=== PATIENT | male | born 2000 | race Caucasian/White ===

== ENCOUNTER 2018-07-16 07:30 | Day surgery (SDC) | payer OTHER ==
[2018-07-13 14:23] LABS: Absolute Lymphocytes (CBC) 1.3 K/uL (0.7-4.9); Absolute Monocytes 0.8 K/uL (0.1-1.3); Absolute Neutrophil 4.6 K/uL (1.8-8.0); Basophils % 0.5 % (0-1.3); Eosinophils % 2.9 % (0-4.4); Hematocrit 40.2 % (39.6-49.0); Lymphocytes % 18.8 % (15.3-44.8); MPV 7.4 fL (7.6-11.3); RBC Red Blood Cell Count 4.67 M/uL (4.33-5.43)
[2018-07-13 14:24] LABS: Protime INR 1.01
[2018-07-13 14:25] LABS: BUN Blood Urea Nitrogen 17 mg/dL (7-18); Bicarbonate 27 mmol/L (21-32); Glucose Level 81 mg/dL (74-106); Potassium 3.9 mmol/L (3.5-5.1); Sodium Level 141 mmol/L (136-145)
--- OUTSIDE RECORDS SUMMARY | 2018-07-16 07:36 | XMS REPORT ---
:2000 [facility] [address] [place] [address] Care Team Providers Name Role Phone Unavailable Unavailable Unavailable Payers Payer Name Policy Type Policy Number Effective Date Expiration Date Problems This patient has no known problems. Allergies, Adverse Reactions, Alerts Allergy Allergy Status Severity Reaction(s) Onset Inactive Treating Comments Name Type Date Date Clinician No Known DA Active U 2018-07 Allergies 00:00:0 0 Medications This patient has no known medications. Results Test Description Test Time Test Comments Text Results Atomic Results Result Comments - XR 2018-07-06 FAX: Thomas Tyler Felch: B St: ANKLE 13:57:00 REG 3 + V Name: JANN CARVAJAL [facility] : RT 2000 Age/S: 17/M Stefani Johnsonncer Subha Unit #: [id number] Loc: [place] [address] Phys : Thomas Tyler MD Acct : [id number] Dis Date: Status: REG ER PHONE #: [phone] Exam Date: 07/06/2018 1245 FAX #: [phone] Reason: ANKLE PAIN EXAMS: CPT CODE: [id number] XR ANKLE 3 + V RT [id number] EXAM: Ankle, 3 views and right foot, 3 views; INFORMATION: Trauma; pain after twisting ankle; FINDINGS: Normal shape and structure of the imaged bones; no evidence of fracture or dislocation; no soft tissue abnormalities. IMPRESSION: No evidence of acute osseous trauma or other pathological changes. No radiopaque foreign body. at 8413 Reported and signed by: Heber Frias M.D. CC: Thomas Tyler MD Technologist: Arthur Bone RT(R) Trnscrd Date/Time/By: 07/06/2018 (0183) : By: ElviraGRW Orig Print D/T: S: 07/06/2018 (3613) PAGE 1 Signed Report - XR 2018-07-06 FAX: Thomas Tyler Felch: B St: FOOT 3 13:57:00 REG + V RT Name: JANN CARVAJAL [facility] : 2000 Age/S: 17/M [address] [facility] Unit # : [id number] Loc: [place] [address] Phys : Thomas Tyler MD Acct : [id number] Dis Date: Status: REG ER PHONE #: [phone] Exam Date: 07/06/2018 1245 FAX #: [phone] Reason: FOOT PAIN EXAMS: CPT CODE: [id number] XR FOOT 3 + V RT [id number] EXAM: Ankle, 3 views and right foot, 3 views; INFORMATION: Trauma; pain after twisting ankle; FINDINGS: Normal shape and structure of the imaged bones; no evidence of fracture or dislocation; no soft tissue abnormalities. IMPRESSION: No evidence of acute osseous trauma or other pathological changes. No radiopaque foreign body. at 1357 Reported and signed by: Heber Frias M.D. CC: Thomas Tyler MD Technologist: Arthur Bone RT(R) Trnscrd Date/Time/By: 07/06/2018 (0054) : By: ElviraGRW Orig Print D/T: S: 07/06/2018 (6252) PAGE 1 Signed Report - XR 2018-07-06 FAX: Thomas Tyler Felch: St: TIBIA/ 13:53:00 REG FIBULA Name: JANN CARVAJAL [facility] : 2 V RT 2000 Age/S: 17/M [address] [facility] Unit #: [id number] Loc: [place] [address] Phys : Thomas Tyler MD Acct : [id number] Dis Date: Status: REG ER PHONE #: [phone] Exam Date: 07/06/2018 1245 FAX #: [phone] Reason: LEG PAIN EXAMS: CPT CODE: [id number] XR TIBIA/FIBULA 2 [place] [id number] EXAM: Right tibia and fibula, 4 views; INFORMATION: Twisted ankle, leg pain; FINDINGS: There is a noncomminuted, nondisplaced fracture through the midportion of the right fibula. The right tibia is intact. No radiopaque foreign bodies. Unremarkable knee joint. IMPRESSION: Nondisplaced fracture of the right fibula. at 1353 Reported and signed by: Heber Frias M.D. CC: Thomas Tyler MD Technologist: Arthur DOZIER) Trnscrd Date/Time/By: 07/06/2018 (5231) : By: Young Orig Print D/T : S: 07/06/2018 (2830) PAGE 1 Signed Report
[2018-07-16] MEDS ORDERED: LIDOCAINE 2% MPF 5 ML VIAL ONE (08:04)
[2018-07-16] MEDS ORDERED: PROPOFOL 200 MG/20 ML VIAL IV ONE (08:04)
[2018-07-16] MEDS ORDERED: Ringers Lactate 1,000 ML IV ONE ×2 (08:05→10:11)
[2018-07-16] MEDS ORDERED: FENTANYL CITR 250 MCG/5 ML ONE (08:05)
[2018-07-16] MEDS ORDERED: CEFAZOLIN/SWI 1gm 1 GM/10 ML SYR ONE (08:07)
[2018-07-16] MEDS ORDERED: ONDANSETRON 4 MG/2 ML VIAL ONE (08:09)
[2018-07-16] MEDS ORDERED: MIDAZOLAM HCL 2 MG/2 ML INJ ONE ×2 (08:12→10:03)
[2018-07-16] MEDS ORDERED: BUPIVACAINE 0.5% PF 10 ML VIAL ONE (08:57)
[2018-07-16] MEDS ORDERED: FENTANYL CITR 100 MCG/2 ML ONE (10:03)
[2018-07-16] MEDS: MEPERIDINE HCL 25 MG/0.5 ML ONE ×2 (10:22→10:26)
[2018-07-16] MEDS: HYDROMORPHONE HCL 2 MG/ML inj ONE ×4 (10:37→11:05)
--- NOTE | 2018-07-16 10:58 | P.BOP ---
Preoperative diagnosis: right ankle syndesmosis injury, right fibula shaft fracture Postoperative diagnosis: same Primary procedure: ORIF right ankle syndesmosis injury Secondary procedure: closed treatment right fibula shaft fracture Rn Float: NONE,NONE Estimated blood loss: 5 cc Specimen: none Findings: see dictation Anesthesia: General Complications: None Implants: 2 hole plate with 2 Arthrex tightope Fluids & blood products: per anesthesia; TT: 72 mins @ 250 mmHg Transferred to: Recovery Room Condition: Good
[2018-07-16] MEDS: MIDAZOLAM HCL 2 MG/2 ML INJ ONE ×2 (11:11→11:28)
--- NOTE | 2018-07-16 11:27 | RAD REPORT ---
EXAM DESCRIPTION: RAD - Ankle Right 3 View - 07/16/2018 11:18 am CLINICAL HISTORY: s/p ORIF right syndesmosis COMPARISON: Ankle Left 3 View dated 06/21/2017 FINDINGS: Postsurgical changes are present involving the right ankle with hardware in place. No unex pected finding. Plaster splint limits bone detail.
[2018-07-16] MEDS ORDERED: HYDROCODONE/APAP 7.5/325 MG TAB ONE ×2 (11:51→13:04)
--- NOTE | 2018-07-16 12:26 | RAD REPORT ---
EXAM DESCRIPTION: RAD - Ankle Right 3 View - 07/16/2018 12:16 pm CLINICAL HISTORY: ORIF IN OR 3 COMPARISON: Ankle Left 3 View dated 06/21/2017 FINDINGS: Fluoroscopic imaging from ORIF procedure right ankle. Details of the procedure not availab le. Fluoroscopy time 1.2 minutes.
--- NOTE | 2018-07-17 03:59 | OP ---
Date of Procedure: 07/16/2018 Surgeon: Brad Goins MD Preoperative Diagnoses: 1.Right ankle syndesmosis tear. 2.Right fibular shaft fracture. Postoperative Diagnosis: 1.Right ankle syndesmosis tear. 2.Right fibular shaft fracture. Procedure Performed: 1.Open reduction and internal fixation of right syndesmosis injury. 2.Closed treatment, right fibular shaft fracture. Anesthesia: General LMA. Fluids: Per Anesthesia record. Estimated Blood Loss: 5 cc. Complications: None. Implants: Two Arthrex syndesmosis TightRope with a 2-hole plate. Tourniquet Time: 72 minutes at 250 mmHg. Indication For Procedure: Danis is a 17-year-old male, who presented to my clinic after sustaining an injury to his right ankle. X-rays and physical exam findings were consistent with a right fibular shaft fracture and syndesmosis injury with a widening of the medial clear space as well as tibiofibu lar space. I discussed with the patient at length risks and benefits associated with operative and n onoperative treatment and he expressed understanding and elected to proceed with operative treatment. Description Of Procedure: After informed consent was obtained, the patient was identified in the pre operative holding area. The right lower extremity was marked. The patient was then taken back to e operating room, transferred to the operative table in supine fashion, placed under general LMA anes thesia. The right lower extremity was prepped and draped in usual sterile fashion. A time-out was i nitiated. The correct patient and procedure were confirmed and identified. The patient did receive preoperative prophylactic antibiotics. The right lower extremity was exsanguinated using an Esmarch and the tourniquet was inflated to 250 mmHg. Approximately, a 4 cm incision was made over the distal fibula just proximal to the joint space. Dissection was then taken down to the distal fibula using Metzenbaum and a soft tissue elevator. Once the distal fibula was encountered, a 2-hole plate was th en placed along the lateral aspect of the distal fibula and held into position using a guidewire. A 2 K-wires were then placed parallel to the distal tibiotalar joint line under fluoroscopic guidance. They were passed across 4 cortices. Once proper positioning was confirmed using fluoroscopy, the ca nnulated drill bit was then placed over the K-wires and the 4 cortices were drilled. Two TightRope w ere then placed. Small stab incisions were made medially. The needles were brought out medially. T he buttons were then clipped and held close against the distal tibia with no underlying soft tissue i nterposition. The buttons were then tightened into place. A hinton reduction clamp was used througho ut the entirety of the case, holding the distal tibiofibular joint reduced. Buttons were then locked into position and there was good overall reduction of the syndesmosis. The remaining sutures were t hen cut. The wounds were then irrigated thoroughly with normal saline. Subcutaneous tissue was appr oximated using a 2-0 Vicryl. The skin was approximated using 3-0 nylon. Sterile dressings were appl ied. The patient was placed in a posterior stirrup splint. He was awakened and transferred to the P ACU in stable condition. Postoperative Plan: He will be nonweightbearing of his right lower extremity. He will follow up in clinic in 2 weeks for wound check. Suture removal. We will likely transition him into a CAM boot, s o we can tell out some gentle [id number] exercises. SEKOU/MODL Voice ID: [id number] Report ID: [id number]
== END 2018-07-16 13:50 | disposition home or self-care (01) ==
LOC: OR 07:30
PROVIDERS: ATTEND Orthopaedic Surgery Sports Medicine
PROC: 0QSG04Z Reposition Right Tibia with Internal Fixation Device, Open Approach (ICD-10-PCS; 2018-07-16)
PROC: 0QSJ04Z Reposition Right Fibula with Internal Fixation Device, Open Approach (ICD-10-PCS; principal; 2018-07-16 08:30)
DX: S93.431A Sprain of tibiofibular ligament of right ankle, initial encounter (principal); S82.491A Other fracture of shaft of right fibula, initial encounter for closed fracture; W03.XXXA Other fall on same level due to collision with another person, initial encounter; Y93.64 Activity, baseball
CPT/HCPCS: 36415; 80048; 85025; 85610; 85730; J0690; J1170; J2175; J2250; J2405; J2704; J3010

== ENCOUNTER 2018-07-16 22:02 | Emergency (ER) | payer OTHER ==
--- OUTSIDE RECORDS SUMMARY | 2018-07-16 22:04 | XMS REPORT ---
:2000 [facility] Address [address] [place] [address] Care Team Providers Name Role Phone Unavailable [...] Comments - XR 2018-07-06 FAX: Thomas Tyler [place]: B St: ANKLE 13:57:00 REG 3 + V Name: JANN CARVAJAL [facility] : RT 2000 Age/S: 17/M Stefani Johnsonncer Subha Unit #: [id number] Loc: [place] [address] Phys : Thomas Tyler MD Acct : [id number] Dis Date: Status: REG ER PHONE #: [phone] Exam Date: 07/06/2018 1245 FAX #: [phone] Reason: ANKLE PAIN EXAMS: CPT CODE: [id number] XR ANKLE 3 + V RT [id number] EXAM: Ankle, 3 views and right foot, 3 views; INFORMATION: Trauma; pain after twisting ankle; FINDINGS: Normal shape and structure of the imaged bones; no evidence of fracture or dislocation; no soft tissue abnormalities. IMPRESSION: No evidence of acute osseous trauma or other pathological changes. No radiopaque foreign body. at 0157 Reported and signed by: Heber Frias M.D. CC: Thomas Tyler MD Technologist: Arthur Bone RT(R) Trnscrd Date/Time/By: 07/06/2018 (7128) : By: ElviraGRW Orig Print D/T: S: 07/06/2018 (3112) PAGE 1 Signed Report - XR 2018-07-06 FAX: Thomas Tyler [place]: B St: FOOT 3 13:57:00 REG + V RT Name: JANN CARVAJAL [facility] : 2000 Age/S: 17/M [address] [facility] Unit # : [id number] Loc: [place] [address] Phys : Thomas Tyler MD Acct : [id number] Dis Date: Status: REG ER PHONE #: [phone] Exam Date: 07/06/2018 1245 FAX #: [phone] Reason: FOOT PAIN EXAMS: CPT CODE: [id number] XR FOOT 3 + V RT [id number] EXAM: Ankle, 3 views and right foot, [...] Technologist: Arthur Bone RT(R) Trnscrd Date/Time/By: 07/06/2018 (6222) : By: ElviraGRW Orig Print D/T: S: 07/06/2018 (8765) PAGE 1 Signed Report - XR 2018-07-06 FAX: Thomas Tyler [place]: St: TIBIA/ 13:53:00 REG FIBULA Name: JANN CARVAJAL [facility] : 2 V RT 2000 Age/S: 17/M [address] [facility] Unit #: [id number] Loc: [place] [address] Phys : Thomas Tyler MD Acct : [id number] Dis Date: Status: REG ER PHONE #: [phone] Exam Date: 07/06/2018 1245 FAX #: [phone] Reason: LEG PAIN EXAMS: CPT CODE: [id number] XR TIBIA/FIBULA 2 V RT [address] EXAM: Right tibia and fibula, 4 views; [...] MD Technologist: Arthur DOZIER) Trnscrd Date/Time/By: 07/06/2018 (2015) : By: Young Orig Print D/T : S: 07/06/2018 (8381) PAGE 1 Signed Report
[2018-07-16] MEDS ORDERED: FENTANYL CITR 100 MCG/2 ML ONE (23:27)
[2018-07-17] MEDS ORDERED: LORazepam 2 MG/ML VIAL ONE (00:04)
[2018-07-17] MEDS ORDERED: HYDROMORPHONE HCL 1 MG/ML INJ ONE ×2 (00:38→02:32)
--- NOTE | 2018-07-17 02:49 | ER ---
Nurse's Notes [facility] Name: Danis Garzon Age: 17 yrs Sex: Male : 2000 Arrival Date: 07/16/2018 Time: 22:13 Bed 7 Private MD: Bull Stone W Diagnosis: post-op pain s/p ORIF R ankle Presentation: 07/16 22:13 Presenting complaint: Patient states: Pt complaining of pain to right leg, reports he ea had surgery today. Mother reports it was tendon repair, Dr. Goins is his surgeon. Transition of care: patient was not received from another setting of care. Onset of symptoms was July 16, 2018. Risk Assessment: Do you want to hurt yourself or someone else? Patient reports no desire to harm self or others. Initial Sepsis Screen: Does the patient meet any 2 criteria? No. Patient's initial sepsis screen is negative. Does the patient have a suspected source of infection? No. Patient's initial sepsis screen is negative. Care prior to arrival: Medication(s) given: norco. 22:13 Method Of Arrival: Wheelchair ea 22:13 Acuity: MARICARMEN 3 ea Historical: - Allergies: 22:17 No Known Allergies; ea - Home Meds: 22:17 None [Active]; ea - PMHx: 22:17 None; ea - PSHx: 22:17 None; ea - Immunization history:: Adult Immunizations up to date. - Social history:: Smoking status: Patient/guardian denies using tobacco. - Ebola Screening: : No symptoms or risks identified at this time. - Family history:: not pertinent. - Hospitalizations: : No recent hospitalization is reported. Screenin:35 Abuse screen: Denies threats or abuse. Denies injuries from another. Nutritional ak1 screening: No deficits noted. Tuberculosis screening: No symptoms or risk factors identified. Fall Risk Gait- Impaired (20 pts.). Assessment: 22:33 General: Appears uncomfortable, Behavior is cooperative. Pain: Complains of pain in ak1 right leg. Neuro: No deficits noted. Cardiovascular: No deficits noted. Respiratory: No deficits noted. GI: No signs and/or symptoms were reported involving the gastrointestinal system. : No signs and/or symptoms were reported regarding the genitourinary system. EENT: No signs and/or symptoms were reported regarding the EENT system. Derm: Skin is pink, warm \T\ dry. cap refill less 3 seconds to right toes. pt c/o increased pain to right lower leg s/p sx today by Dr. Goins. pt mother stated she called Dr. Goins office with no success of reaching anyone. Musculoskeletal: No signs and/or symptoms reported regarding the musculoskeletal system. 22:35 Reassessment: pt refused offer to elevate extremity. ak1 07/17 00:00 Reassessment: Pt c/o of pain at this time. notified. new order see JUL. tl2 00:05 Reassessment: Dr. Sweeney removed splint and wrapping from right leg. elevated leg on 2 tl2 pillows and instructed to let leg rest before replacing splint. 00:54 Reassessment: Patient appears in no apparent distress at this time. pt resting, reports tl2 relief with dilaudid. 02:13 Reassessment: Awaiting Dr. Sweeney for splint replacement. tl2 03:26 Reassessment: pt is A\T\O x 4, splint replaced pt states it is more comfortable now, pt bb and parent verbalized understanding of and agrees to plan of care discharge instructions given pt assisted to exit via wheelchair accompanied by family. Vital Signs: 07/16 22:16 BP 136 / 94; Pulse 82; Resp 18; Temp 97.8; Pulse Ox 95% on R/A; Weight 74.84 kg; Height ea 6 ft. (182.88 cm); Pain 10/10; 22:35 BP 144 / 79; Pulse 79; Resp 16; Pulse Ox 100% on R/A; Pain 9/10; ak1 07/17 00:02 BP 154 / 98; Pulse 94; Resp 20; Pulse Ox 100% on R/A; tl2 00:53 BP 138 / 87; Pulse 73; Resp 18; Pulse Ox 96% on R/A; tl2 01:21 BP 148 / 84; Pulse 71; Resp 18; Pulse Ox 98% on R/A; tl2 03:27 BP 141 / 90; Pulse 83; Resp 16 S; Temp 98.5(O); Pulse Ox 98% on R/A; Pain 7/10; bb 07/16 22:16 Body Mass Index 22.38 (74.84 kg, 182.88 cm) ea ED Course: 07/16 22:13 Patient arrived in ED. am2 22:13 Bull Stone MD is Private Physician. am2 22:16 Triage completed. ea 22:17 Arm band placed on right wrist. Patient placed in waiting room. ea 22:33 Xenia Gregorio, RN is Primary Nurse. ak1 22:36 Patient has correct armband on for positive identification. Bed in low position. Call ak1 light in reach. Side rails up X2. Adult w/ patient. Pulse ox on. NIBP on. 23:00 Tor Sweeney MD is Attending Physician. wa 23:07 Inserted saline lock: 22 gauge in right antecubital area, using aseptic technique. tl2 07/17 02:35 Tib Fib Right XRAY In Process Unspecified. EDMS 02:47 Brad Goins MD is Referral Physician. wa 03:27 No provider procedures requiring assistance completed. IV discontinued, intact, bb bleeding controlled, No redness/swelling at site. Pressure dressing applied. Administered Medications: 07/16 23:22 Drug: fentaNYL (PF) 75 mcg Route: IVP; Site: right antecubital; tl2 23:30 Follow up: Response: No adverse reaction; Pain is decreased tl2 23:59 Drug: Ativan 0.5 mg Route: IVP; Site: right antecubital; tl2 07/17 00:55 Follow up: Response: No adverse reaction; Marked relief of symptoms tl2 00:31 Drug: Dilaudid 1 mg Route: IVP; Site: right antecubital; tl2 00:55 Follow up: Response: No adverse reaction; Pain is decreased tl2 02:24 Drug: Dilaudid 1 mg Route: IVP; Site: right antecubital; tl2 03:25 Follow up: Response: Pain is decreased bb 03:19 Drug: TORadol 30 mg Route: IVP; Site: right antecubital; bb 03:25 Follow up: Response: Pain is decreased bb 03:20 Drug: Zofran 4 mg Route: IVP; Site: right antecubital; bb 03:26 Follow up: Response: No adverse reaction bb Outcome: 02:48 Discharge ordered by . wa 03:28 Discharged to home via wheelchair, with family. bb 03:28 Condition: stable 03:28 Discharge instructions given to patient, family, Instructed on discharge instructions, follow up and referral plans. medication usage, Demonstrated understanding of instructions, follow-up care, medications, Prescriptions given X 2. 03:28 Patient left the ED. bb Signatures: Dispatcher [employer] EDMS Ximena Gutiérrez RN RN Xenia Vance RN RN ak1 Carol Schumacher RN RN tl2 Kimberlyn Russell Elena, RN RN Tor Jay MD MD wa
--- NOTE | 2018-07-17 02:49 | EDPHYS ---
Physician Documentation [facility] Name: Danis Garzon Age: 17 yrs Sex: Male : 2000 Arrival Date: 07/16/2018 Time: 22:13 Bed 7 Private MD: Bull Stone W ED Physician Tor Sweeney HPI: 07/17 00:28 This 17 yrs old Male presents to ER via Wheelchair with complaints of Post wa Surgical Pain. 00:28 The patient presents with pain, that is acute, s/p R ankle tendon repair by Dr. Goins. wa c/o worsening pain at home. h/o R ankle injury secondary to playing basketball. The complaints affect the R foot and ankle. Context: The problem was sustained at a sports field or court, resulted from a mis-step, while playing ball, the patient is not able to bear weight, with crutches. Onset: The symptoms/episode began/occurred today, post-surgery. Modifying factors: The symptoms are alleviated by nothing. the symptoms are aggravated by movement. Associated signs and symptoms: The patient has no apparent associated signs or symptoms. Treatment prior to arrival includes: norco at home. Severity of symptoms: At their worst the symptoms were severe, in the emergency department the symptoms are unchanged. The patient has not experienced similar symptoms in the past. The patient has been recently seen by a physician: Dr. Goins. ortho. Historical: - Allergies: 07/16 22:17 No Known Allergies; ea - Home Meds: 22:17 None [Active]; ea - PMHx: 22:17 None; ea - PSHx: 22:17 None; ea - Immunization history:: Adult Immunizations up to date. - Social history:: Smoking status: Patient/guardian denies using tobacco. - Ebola Screening: : No symptoms or risks identified at this time. - Family history:: not pertinent. - Hospitalizations: : No recent hospitalization is reported. ROS: 07/17 00:31 Constitutional: Negative for fever, chills, and weight loss, Eyes: Negative for injury, wa pain, redness, and discharge, ENT: Negative for injury, pain, and discharge, Neck: Negative for injury, pain, and swelling, Cardiovascular: Negative for chest pain, palpitations, and edema, Respiratory: Negative for shortness of breath, cough, wheezing, and pleuritic chest pain, Abdomen/GI: Negative for abdominal pain, nausea, vomiting, diarrhea, and constipation, Back: Negative for injury and pain, : Negative for injury, bleeding, discharge, and swelling, Skin: Negative for injury, rash, and discoloration, Neuro: Negative for headache, weakness, numbness, tingling, and seizure, Psych: Negative for depression, anxiety, suicide ideation, homicidal ideation, and hallucinations. MS/extremity: Positive for pain, tenderness, of the lateral aspect of right calf, right ankle, right calf, right Achilles, medial aspect of right calf, right patiño and anterior aspect of right ankle. Exam: 00:32 Head/Face: Normocephalic, atraumatic. Eyes: Pupils equal round and reactive to light, wa extra-ocular motions intact. Lids and lashes normal. Conjunctiva and sclera are non-icteric and not injected. Cornea within normal limits. Periorbital areas with no swelling, redness, or edema. ENT: Nares patent. No nasal discharge, no septal abnormalities noted. Tympanic membranes are normal and external auditory canals are clear. Oropharynx with no redness, swelling, or masses, exudates, or evidence of obstruction, uvula midline. Mucous membranes moist. Neck: Trachea midline, no thyromegaly or masses palpated, and no cervical lymphadenopathy. Supple, full range of motion without nuchal rigidity, or vertebral point tenderness. No Meningismus. Chest/axilla: Normal chest wall appearance and motion. Nontender with no deformity. No lesions are appreciated. Cardiovascular: Regular rate and rhythm with a normal S1 and S2. No gallops, murmurs, or rubs. Normal PMI, no JVD. No pulse deficits. Respiratory: Lungs have equal breath sounds bilaterally, clear to auscultation and percussion. No rales, rhonchi or wheezes noted. No increased work of breathing, no retractions or nasal flaring. Abdomen/GI: Soft, non-tender, with normal bowel sounds. No distension or tympany. No guarding or rebound. No evidence of tenderness throughout. Back: No spinal tenderness. No costovertebral tenderness. Full range of motion. Skin: Warm, dry with normal turgor. Normal color with no rashes, no lesions, and no evidence of cellulitis. Neuro: Awake and alert, GCS 15, oriented to person, place, time, and situation. Cranial nerves II-XII grossly intact. Motor strength 5/5 in all extremities. Sensory grossly intact. Cerebellar exam normal. Normal gait. Psych: Awake, alert, with orientation to person, place and time. Behavior, mood, and affect are within normal limits. 00:32 Constitutional: The patient appears alert, in pain 00:32 Musculoskeletal/extremity: Extremities: grossly normal except: tenderness, L lower leg and ankle tender. compartments soft. good strong pulse. good cap refill. Vital Signs: 07/16 22:16 BP 136 / 94; Pulse 82; Resp 18; Temp 97.8; Pulse Ox 95% on R/A; Weight 74.84 kg; Height ea 6 ft. (182.88 cm); Pain 10/10; 22:35 BP 144 / 79; Pulse 79; Resp 16; Pulse Ox 100% on R/A; Pain 9/10; ak1 07/17 00:02 BP 154 / 98; Pulse 94; Resp 20; Pulse Ox 100% on R/A; tl2 00:53 BP 138 / 87; Pulse 73; Resp 18; Pulse Ox 96% on R/A; tl2 01:21 BP 148 / 84; Pulse 71; Resp 18; Pulse Ox 98% on R/A; tl2 03:27 BP 141 / 90; Pulse 83; Resp 16 S; Temp 98.5(O); Pulse Ox 98% on R/A; Pain 7/10; bb 07/16 22:16 Body Mass Index 22.38 (74.84 kg, 182.88 cm) ea MDM: 07/16 23:00 Patient medically screened. ak 07/17 00:34 Differential diagnosis: pain post surgical repair. no signs of compartment syndrome ak when splint taken off. will attempt pain control in ED. will check x-ray. reassess. 02:19 Data reviewed: vital signs, nurses notes. Test interpretation: by ED physician or ak midlevel provider: R tib-fib xray: Mid shaft comminuted fx of fibular. distal fibular fx. distal fibular fx. noted intact hardware to distal fibular and tibia. Response to treatment: the patient's symptoms have mildly improved after treatment. 02:46 ED course: pain control via IV. replaced splint. home regiment discussed. will d/c home.ak 07/16 23:10 Order name: Tib Fib Right XRAY ak 07/16 23:10 Order name: IV Start; Complete Time: 23:15 ak Administered Medications: 07/16 23:22 Drug: fentaNYL (PF) 75 mcg Route: IVP; Site: right antecubital; tl2 23:30 Follow up: Response: No adverse reaction; Pain is decreased tl2 23:59 Drug: Ativan 0.5 mg Route: IVP; Site: right antecubital; tl2 07/17 00:55 Follow up: Response: No adverse reaction; Marked relief of symptoms tl2 00:31 Drug: Dilaudid 1 mg Route: IVP; Site: right antecubital; tl2 00:55 Follow up: Response: No adverse reaction; Pain is decreased tl2 02:24 Drug: Dilaudid 1 mg Route: IVP; Site: right antecubital; tl2 03:25 Follow up: Response: Pain is decreased bb 03:19 Drug: TORadol 30 mg Route: IVP; Site: right antecubital; bb 03:25 Follow up: Response: Pain is decreased bb 03:20 Drug: Zofran 4 mg Route: IVP; Site: right antecubital; bb 03:26 Follow up: Response: No adverse reaction bb Disposition: 07/17/18 02:48 Discharged to Home. Impression: post-op pain s/p ORIF R ankle. - Condition is Stable. - Discharge Instructions: Pain Relief Preoperatively and Postoperatively, Ankle Fracture, [id number]. - Prescriptions for Ibuprofen 600 mg Oral Tablet - take 1 tablet by ORAL route every 8 hours As needed take with food; 30 tablet. Zofran 4 mg Oral Tablet - take 1 tablet by ORAL route every 12 hours As needed; 20 tablet. - Medication Reconciliation Form, Thank You Letter, Antibiotic Education, Prescription Opioid Use form. - Follow up: Brad Goins MD; When: 1 - 2 days; Reason: Recheck today's complaints. - Problem is new. - Symptoms have improved. - Notes: take one 600 mg motrin, one extra-strength tylenol, and one norco 3 times a day as needed for your pain. make sure to take together when needed. have a meal in your stomach before you take the medication. you may take zofran as needed if nausea. follow up with Dr. Goins by calling for appointment to see him sooner if pain still not improving. Signatures: Dispatcher [employer] Ximena Alcaraz RN Carol Aguiar RN RN tl2 Savana An RN WANDA ea Tor Sweeney MD MD wa Corrections: (The following items were deleted from the chart) 03:28 02:48 07/17/2018 02:48 Discharged to Home. Impression: post-op pain s/p ORIF R ankle. bb Condition is Stable. Forms are Medication Reconciliation Form, Thank You Letter, Antibiotic Education, Prescription Opioid Use. Follow up: Dr. Brad Goins; When: 1 - 2 days; Reason: Recheck today's complaints. Problem is new. Symptoms have improved. wa
[2018-07-17] MEDS ORDERED: KETOROLAC 30 MG/ML INJ ONE (02:58)
[2018-07-17] MEDS ORDERED: ONDANSETRON 4 MG/2 ML VIAL ONE (02:58)
--- NOTE | 2018-07-17 09:12 | RAD REPORT ---
EXAM DESCRIPTION: RAD - Tib Fib Right - 07/17/2018 2:35 am CLINICAL HISTORY: Postsurgical pain, fracture repair COMPARISON: July 16 intraoperative and postoperative images FINDINGS: Midshaft fibula fracture is present. There are 2 fracture lines seen with a moderately lar ge free fracture fragment. No distraction or angulation deformity. No pathologic component. Surgical hardware and postsurgical defects are present in the distal radius and ulna. No suspicious o r unexpected finding at this site. Cast material is in place somewhat limiting detail. No unexpected finding. IMPRESSION: Midshaft fibula fracture with no significant distraction or angulation deformity. Surgical hardware in postsurgical changes to the distal tibia and fibula without suspicious finding.
== END 2018-07-17 03:28 | disposition home or self-care (01) ==
LOC: ER 22:02
DX: G89.18 Other acute postprocedural pain (principal); M25.571 Pain in right ankle and joints of right foot
CPT/HCPCS: 96374; 96375; 99284; J1170; J2405; J3010